=== PATIENT | male | born 1965 | race Caucasian/White ===

== ENCOUNTER 2023-11-15 04:47 | Emergency (ER) | payer BC, OTHER ==
[~2023-11-15] VITALS: Ht 175.3 cm; Wt 90.7 kg
[2023-11-15] MEDS ORDERED: HYDROCODONE BIT/HOMATROPINE 5 ML UDC ONE (05:24)
[2023-11-15] MEDS: HYDROCODONE BIT/HOMATROPINE 5 ML UDC PO ONE (05:25)
[2023-11-15] MEDS ORDERED: HYDR473S4 PO (05:28)
[2023-11-15] MEDS ORDERED: DOXY100T2 PO (05:28)
[2023-11-15] MEDS ORDERED: PRED20TA PO (05:30)
[2023-11-15 05:35] VITALS: BP 149/114; O2SAT 98
== END 2023-11-15 05:35 | disposition home or self-care (01) ==
LOC: ER 04:56
DX: J20.9 Acute bronchitis, unspecified (principal); Z79.899 Other long term (current) drug therapy
CPT/HCPCS: A4606; A4663

== ENCOUNTER 2025-05-15 12:12 | Emergency (ER) | payer BC, OTHER ==
[~2025-05-15] VITALS: Ht 177.8 cm; Wt 88.5 kg
[2025-05-15 12:12] VITALS: BP 137/85
[~2025-05-15 12:12] MED LIST: DOXY100T2 PO; HYDR473S4 PO; PRED20TA PO
[2025-05-15] MEDS ORDERED: HYDR-3972 PO (14:30)
[2025-05-15 14:43] VITALS: BP 129/80; O2SAT 97
== END 2025-05-15 14:43 | disposition home or self-care (01) ==
LOC: ER 12:12
DX: B34.9 Viral infection, unspecified (principal); J34.89 Other specified disorders of nose and nasal sinuses; R05.9 Cough, unspecified; Z79.52 Long term (current) use of systemic steroids
CPT/HCPCS: A4606; A4663